=== PATIENT | female | born 1960 | race Caucasian/White ===

== ENCOUNTER 2024-10-15 01:01 | Day surgery (SDC) | payer BC ==
[2024-10-15] MEDS ORDERED: Ondansetron 4 MG/2 ML SDV IVPUSH PRN (01:24)
[2024-10-15] MEDS: Lactated Ringers 1,000 ML IV SCH (01:44)
[2024-10-15] MEDS: HYDROmorphone 0.5 MG/0.5 ML Syringe IVPUSH PRN (02:04)
[2024-10-15] MEDS: Piperacillin/Tazobactam 3.375 GM in Sodium Chloride 0.9% 100 ML IV ONE (05:23)
[2024-10-15] MEDS ORDERED: Bupivacaine 0.5% 30 ML SDV ONE (07:57)
[2024-10-15] MEDS ORDERED: dexmedeTOMIDine HCl 200 MCG/2 ML SDV ONE (08:23)
[2024-10-15] MEDS ORDERED: Midazolam 1 MG/ML 2 ML SDV ONE (08:23)
[2024-10-15] MEDS ORDERED: Lidocaine 2% 5 ML SDV ONE (08:23)
[2024-10-15] MEDS ORDERED: Propofol 200 MG/20 ML SDV ONE (08:23)
[2024-10-15] MEDS ORDERED: Sodium Chloride 0.9% 20 ML ONE (08:23)
[2024-10-15] MEDS ORDERED: fentaNYL 100 MCG/2 ML SDV ONE (08:23)
[2024-10-15] MEDS ORDERED: Ropivacaine 0.5% 5 MG/ML 30 ML SDV ONE (08:27)
[2024-10-15] MEDS ORDERED: Rocuronium 100 MG/10 ML MDV ONE (09:53)
[2024-10-15] MEDS ORDERED: Ondansetron 4 MG/2 ML SDV ONE (09:53)
[2024-10-15] MEDS ORDERED: Sugammadex Sodium 200 MG/2 ML VIAL IV ONE (09:53)
[2024-10-15] MEDS ORDERED: Dexamethasone 4 MG/ML 5 ML MDV ONE (09:53)
[2024-10-15] MEDS ORDERED: Ketorolac 30 MG/ML SDV ONE (09:53)
[2024-10-15] MEDS ORDERED: HYDROmorphone 1 MG/ML Syringe ONE (10:48)
[2024-10-15] MEDS ORDERED: Acetaminophen/HYDROcodone 325-10 MG Tab PO PRN (11:32)
[2024-10-15] MEDS ORDERED: HYDROmorphone 1 MG/ML Syringe IVPUSH PRN (11:32)
[2024-10-15] MEDS ORDERED: diphenhydrAMINE 50 MG/ML SDV IVPUSH PRN (11:32)
[2024-10-15] MEDS: Lactated Ringers 1,000 ML IV ONE (12:44)
== END 2024-10-15 18:00 | disposition home or self-care (01) ==
LOC: MW.SDS 01:01 → MW.MS 01:09 → MW.SDS 18:00
PROVIDERS: ATTEND Surgery
DX: K35.33 Acute appendicitis with perforation, localized peritonitis, and gangrene, with abscess (principal); K43.9 Ventral hernia without obstruction or gangrene; K86.2 Cyst of pancreas
CPT/HCPCS: 44970; 64488; 82947; J0131; J0665; J1100; J1885; J2250; J2405; J2543; J2704; J2795; J3010; J3490; J7120; 00840; 64486; J1171